=== PATIENT | male | born 1980 | race Caucasian/White ===

== ENCOUNTER 2022-06-18 22:20 | Emergency (ER) | payer MEDICAID, SELFPAY ==
--- NOTE | ~2022-06-18 | CT_ITS ---
EXAMINATION: CT ELBOW LT WO IV CON CLINICAL INFORMATION: Reason for Exam comminuted fx COMPARISON: X-ray dated 06/18/2022 TECHNIQUE: Multidetector CT imaging of the left elbow was performed without the use of intravenous contrast. Coronal and sagittal reformats created on an independent workstation were reviewed. This CT examination was performed using dose optimization techniques as appropriate, variously including the following: *Automated exposure control *Adjustment of mA and/or kV according to patient size (this includes techniques or standardized protocols for targeted exams where dose is matched to indication/reason for exam; i.e. extremities or head) *Use of iterative reconstruction technique DLP: 105 mGy-cm FINDINGS: Again seen is a markedly comminuted, essentially shattered proximal radius involving the radial head and neck with distant scattering of the fracture fragments anterior to the proximal radius as well as posterior to the distal humerus and within the olecranon fossa. Posterior dislocation of the ulna with respect to the humerus, associated with comminuted avulsion fractures of the coronoid, which are displaced proximally and anteriorly, 2.7 cm from the ulna. The humerus is intact. An elbow joint effusion is present. Diffuse soft tissue swelling. CT/CT elbow LT wo IV con IMPRESSION: * Posterior dislocation of the ulna with respect to the humerus, associated with comminuted avulsion fractures of the coronoid process. * Markedly comminuted and displaced fracture of the proximal radius as described.
--- NOTE | ~2022-06-18 | XR_ITS ---
EXAMINATION: XR ELBOW, LEFT CLINICAL INFORMATION: Fall COMPARISON: None available. TECHNIQUE: Two views of the left elbow. FINDINGS: Extensively comminuted fracture of the proximal radius with significant displacement of the shattered radial head fracture fragments both anterior and posterior to the distal humerus. There is associated posterior dislocation of the ulna with respect to the humerus. A large joint effusion is present. Diffuse soft tissue tissue swelling. XR/XR elbow LT 2V IMPRESSION: Extensively comminuted and displaced fracture of the proximal radius with associated posterior dislocation of the ulna with respect to the humerus.
[2022-06-18 23:35] VITALS: BMI 37.6
[2022-06-18 23:46] VITALS: BP 141/80; PULSE 97; RESP 14; TEMP 36.9; O2SAT 98
[2022-06-18 23:48] LABS: Basophils Percent Auto 0.6 % (0-2); Eosinophils Absolute Auto 0.2 X10*3/uL (0.0-0.4); Eosinophils Percent Auto 3.6 % (0-4); Hematocrit 43.9 % (42.0-52.0); Hemoglobin 14.5 g/dl (14.0-18.0); Imm Gran Abs Auto 0.01 X10*3/uL (0.00-0.03); Imm Gran Pct Auto 0.2 % (0.0-0.4); Lymphocytes Percent Auto 29.9 % (20-40); MANUAL DIFF FLAG NO; Mean Corpuscular Hemoglobin 31.5 pg (27.0-33.0); Mean Corpuscular Volume 95.2 fL (80.0-98.0); Mean Platelet Volume 11.7 fL (9.4-12.4); Monocytes Absolute Auto 0.6 X10*3/uL (0.1-1.2); Monocytes Percent Auto 8.3 % (2-11); Neutrophils Absolute Auto 3.8 x10*3/uL (2.0-8.3); Neutrophils Percent Auto 57.4 % (45-73); Platelet Count 219 X10*3/uL (160-400); Red Blood Count 4.61 X10*6/uL (4.60-5.80); Red Cell Distribution Width 12.8 % (11.0-16.0); White Blood Count 6.6 X10*3/uL (4.8-10.8)
[2022-06-19] LABS: Lactic Acid 1.2 mmol/L (0.5-2.0)
[2022-06-19 00:05] LABS: Alanine Aminotransferase 27 U/L (0-40); Albumin Level 4.3 g/dL (3.5-5.0); Alkaline Phosphatase 144 U/L (39-117); Anion Gap 13 (12-20); Aspartate Amino Transferase 23 U/L (5-37); Bilirubin Total 0.4 mg/dL (0.0-1.0); Blood Urea Nitrogen 13 mg/dL (9-16); Calcium 9.7 mg/dL (8.4-10.2); Carbon Dioxide 29 mmol/L (22-29); Chloride 107 mmol/L (96-108); Creatinine Clr Calc Pharmacy 107.9; Estimated Glomerular Filt Rate > 60; Glucose Random 111 mg/dL (60-115); Potassium 4.3 mmol/L (3.3-5.1); Sodium 145 mmol/L (135-145)
--- NOTE | 2022-06-19 00:05 | PC.NURSE ---
LAKHWINDER Reynolds placed 20g IV in RAC, labs drawn. Pt reports breaking arm in [place] and was not able to get it fixed and so he was flown here to get it fixed. Pt has ROM in his fingers and capillary refill of less than 2 seconds. Pt also has feeling in his fingers and reports 10/10 pain in his elbow Pt is alert and oriented x4, respirations even and unlabored, skin pink warm and dry, circulation intact
--- NOTE | 2022-06-19 00:13 | ED.EXTPRO ---
HPI - Extremity Problem General Chief complaint: Extremity Injury, Upper Stated complaint: broken arm Time Seen by Provider: 06/18/22 23:42 Source: patient Mode of arrival: ambulatory Limitations: no limitations History of Present Illness HPI Narrative: Patient apparently fell 2 weeks ago in [place] from 4 ft landed on his left elbow went to the ER diagnosed with elbow fracture posterior splint was placed patient came here today for further evaluation patient complaining of swelling of the left hand and elbow able to feel Related Data Previous Rx's Medication Instructions Recorded ibuprofen 600 mg tablet 600 mg PO Q6H PRN fever or pain 06/19/22 #30 tabs Allergies Allergy/AdvReac Type Severity Reaction Status Date / Time No Known Allergies Allergy Verified 06/18/22 23:43 Review of Systems Review of Systems: Yes all other systems are reviewed and are negative [facility] Social History Social History Smoked in Last 30 Days: Yes Use of substances other than those prescribed or required for medical reasons: No Advance Directives: No Advance Directives Information Provided: No Physical Exam Vital Signs: Vital Signs: Last Vital Signs Temp 98.2 F 06/19/22 01:23 Pulse 83 06/19/22 01:23 Resp 18 06/19/22 01:23 BP 132/89 06/19/22 01:23 Pulse Ox 98 06/19/22 01:23 O2 Del Method Room Air 06/19/22 01:23 BMI result Body Mass Index 37.6 Appearance: Alert. Oriented X3. No acute distress. Eyes: No pallor or icterus ENT: Pharynx normal. Oral Mucosa moist Neck: Normal inspection. Neck supple. CVS: Normal heart rate and rhythm. Pulses normal. Respiratory: No respiratory distress. Equal air entry bilateral, Abdomen: Soft and nontender. Bowel sounds are present, Skin: Skin warm and dry. Normal skin color. Normal skin turgor. Extremities: Left arm swelling at her left elbow forearm is soft neurovascular intact good range of movement of the hand and the wrist and fingers no signs of compartment syndrome Neuro: Oriented X 3. No motor deficit. No sensory deficit.No cerebellar signs , cranial nerves II-XII intact Medications Administered Discontinued Medications Generic Name Dose Route Start Last Admin Trade Name Freq PRN Reason Stop Dose Admin Oxycodone HCl 10 mg 06/19/22 00:54 06/19/22 01:03 Oxycodone Hcl Immed Release 5 Mg Tablet PO 06/19/22 00:55 10 mg ONCE ONE Administration Medical Decision Making Medical Decision Making [facility] Narrative: Patient was mechanical fall with posterior dislocation of the ulna with committed avulsion fracture of coronoid , proximal radius fracture. Case discussed ortho like to see the patient today or tomorrow for surgical evaluation sugar-tong splint was applied Lab Data [facility] Lab Attestation statement: I reviewed the patient's lab results. 06/18/22 23:42 06/18/22 23:42 Labs: Lab Results 06/18/22 06/18/22 06/18/22 Range/Units 23:42 23:42 23:42 WBC 6.6 (4.8-10.8) X10*3/uL RBC 4.61 (4.60-5.80) X10*6/uL Hgb 14.5 (14.0-18.0) g/dl Hct 43.9 (42.0-52.0) % MCV 95.2 (80.0-98.0) fL MCH 31.5 (27.0-33.0) pg MCHC 33.0 (31.0-36.0) g/dl RDW 12.8 (11.0-16.0) % Plt Count 219 (160-400) X10*3/uL MPV 11.7 (9.4-12.4) fL Immature Gran % (Auto) 0.2 (0.0-0.4) % Neut % (Auto) 57.4 (45-73) % Lymph % (Auto) 29.9 (20-40) % Bradley % (Auto) 8.3 (2-11) % Eos % (Auto) 3.6 (0-4) % Baso % (Auto) 0.6 (0-2) % Lymph # (Auto) 2.0 (1.2-4.9) X10*3/uL Bradley # (Auto) 0.6 (0.1-1.2) X10*3/uL Eos # (Auto) 0.2 (0.0-0.4) X10*3/uL Baso # (Auto) 0.0 (0.0-0.2) X10*3/uL Abs Immat Gran (auto) 0.01 (0.00-0.03) X10*3/uL Absolute Neuts (auto) 3.8 (2.0-8.3) x10*3/uL Absolute Nucleated RBC 0.000 (0.0-0.012) X10*3/uL Nucleated RBC % (auto) 0.0 (0.0-0.2) /100WBC Sodium 145 (135-145) mmol/L Potassium 4.3 (3.3-5.1) mmol/L Chloride 107 (96-108) mmol/L Carbon Dioxide 29 (22-29) mmol/L Anion Gap 13 (12-20) BUN 13 (9-16) mg/dL Creatinine 1.20 (0.5-1.4) mg/dL Estim Creat Clear Calc 107.9 Estimated GFR > 60 Random Glucose 111 (60-115) mg/dL Lactic Acid 1.2 (0.5-2.0) mmol/L Calcium 9.7 (8.4-10.2) mg/dL Total Bilirubin 0.4 (0.0-1.0) mg/dL AST 23 (5-37) U/L ALT 27 (0-40) U/L Alkaline Phosphatase 144 H (39-117) U/L Total Creatine Kinase 90 (38-174) U/L Total Protein 7.0 (6.5-8.0) g/dL Albumin 4.3 (3.5-5.0) g/dL Radiology Impression Discussion of test interpretation with radiology: I have reviewed the radiologist's reading. Radiologist Impression: RDER #: [id number] CT/CT elbow LT wo IV con IMPRESSION: *? Posterior dislocation of the ulna with respect to the humerus, associated with comminuted avulsion fractures of the coronoid process. *? Markedly comminuted and displaced fracture of the proximal radius as described. ? Procedures Orthopedic Splinting/Casting Injury #1: Side: left Upper Extremity Injury Location: elbow Upper Extremity Immobilizer: sling/shoulder immobilizer and sugar tong splint Discharge Plan Discharge Clinical Impression: Fracture of radial head, left, closed Patient Disposition: Home, Self-Care Instructions: Elbow Fracture (ED) Additional Instructions: Keep the left arm in the splint as provided Keep it elevated See orthopedics in 1-2 days someone will call you from the office Ibuprofen for pain Prescriptions: New ibuprofen 600 mg tablet 600 mg PO Q6H PRN (Reason: fever or pain) Qty: 30 0RF Referrals: Bob Garcia MD [Physician] - 2 days Interventions: ED Discharge Assessment Last Done: 06/19/22 01:47 Discharge Date/Time: 06/19/22 01:47
[2022-06-19] MEDS: oxyCODONE HCl Immed Release 5 MG TABLET 10 MG PO (01:03)
--- NOTE | 2022-06-19 01:14 | MHC.EDTECH ---
Addendum entered by aDniela Yin 06/19/22 01:37: Error splint applied to Left arm. Original Note: This Tech applied a sugar-tongue splint to patients right arm with lots of padding for comfort. Patient was able to tolerate procedure, at bedside and checked for placement. Sling applied for comfort and to keep arm elevated.
[2022-06-19 01:23] VITALS: BP 132/89; PULSE 83; RESP 18; TEMP 36.8; O2SAT 98
--- NOTE | 2022-06-19 01:44 | PC.NURSE ---
late entry- family member at bedside. primary marketing pr intern performed. pt awaiting ct
--- NOTE | 2022-06-19 01:45 | PC.NURSE ---
pt ambulatory at discharge. iv removed at this time. cms intact. pt able to move all 5 digits. pt continues to tolerate splint and sling well. pt provided with prescription, copies of imaging, and discharge packet. pt and family member verbalize understanding of discharge plan
== END 2022-06-19 01:47 | disposition home or self-care (01) ==
PROVIDERS: Emergency Provider Internal Medicine
DX: S52.122A Displaced fracture of head of left radius, initial encounter for closed fracture (principal); M25.522 Pain in left elbow; W01.0XXA Fall on same level from slipping, tripping and stumbling without subsequent striking against object, initial encounter; Y93.9 Activity, unspecified; Y92.9 Unspecified place or not applicable; Y99.9 Unspecified external cause status; Z79.899 Other long term (current) drug therapy
CPT/HCPCS: 29105; 36415; 73070; 73200; 80053; 82550; 83605; 85025; 99284

== ENCOUNTER → 2022-06-20 10:33 | Outpatient (BNVA) | payer MEDICAID, SELFPAY | PROVIDERS: Visit Provider Physician Assistant | DX: S52.122A Displaced fracture of head of left radius, initial encounter for closed fracture (principal); S53.105A Unspecified dislocation of left ulnohumeral joint, initial encounter; S52.042A Displaced fracture of coronoid process of left ulna, initial encounter for closed fracture | CPT/HCPCS: 99202 ==

== ENCOUNTER 2022-06-25 11:36 | Day surgery (SDC) | payer MEDICAID, SELFPAY ==
--- NOTE | 2022-06-24 09:08 | HO.ANESPROP2 ---
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 Meds Allergies Allergy/AdvReac Type Severity Reaction Status Date / Time No Known Allergies Allergy Verified 06/20/22 10:43 Exam Exam Date and Time: June 24, [id number] Pertinent Lab Results Pertinent Lab Results: Laboratory Tests 06/18/22 06/18/22 23:42 23:42 WBC 6.6 Hgb 14.5 Hct 43.9 Plt Count 219 Sodium 145 Potassium 4.3 Chloride 107 Carbon Dioxide 29 BUN 13 Creatinine 1.20 Assessment and Plan Assessment Anesthesia Assessment: Chart Reviewed Documented by User: Anthony Alford MD 06/25/22 10:28 [facility] Family History Family history of problems with anesthesia: No Surgical History History of Problems with Anesthesia: No Social History Social History (Updated 06/20/22 @ 10:44 by Michael Ch) Alcohol intake: never Patient Tobacco Use Status: Former Tobacco user Current occupational status: employed 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, 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 Meds Allergies Allergy/AdvReac Type Severity Reaction Status Date / Time No Known Allergies Allergy Verified 06/20/22 10:43 Exam Airway Mallampati Class: II TM Dist: >3cm Neck ROM: Full Heart: rrr Lungs: cta Assessment and Plan Assessment Anesthesia Assessment: Anesthesia Plan Discussed Final Anesthetic Review Family History of Problems with Anesthesia: No History of Problems with Anesthesia: No NPO: Yes ASA Class: II Final Preanesthetic Review: No Changes in Pt Med Stat, Meds/Allgs Chart Reviewed, Consent Obtained/Reviewed and Anes Risks/Benef Reviewed Patient Risk: Intermediate Procedure Risk: Intermediate Anesthetic Plan Anesthetic Plan: GA and Regional Block Disposition: Standard PACU
[2022-06-25] VITALS (7 sets, daily range): BP systolic 111–139; BP diastolic 73–78; PULSE 82–98; RESP 12–21; TEMP 36.3–36.6; O2SAT 92–98; BMI 36.2
--- NOTE | ~2022-06-25 | FL_ITS ---
EXAMINATION: XR FLUOROSCOPY WITH IMAGES CLINICAL INFORMATION: Left elbow ORIF. COMPARISON: None available. TECHNIQUE: Fluoroscopy Supervised By: Dr. Bob Garcia. Fluoroscopy Time: 0.3 minutes. Cumulative Dose: 1.47 mGy. DAP: 0.0255 Gycm2. Images: 2. FINDINGS: 2 images show the presence of a radial head prosthesis. FL/FL guidance in OR IMPRESSION: Fluoroscopy and spot films provided to Dr. Bob Garcia during ORIF of the left elbow. Please see his procedure note for full details.
[2022-06-25] MEDS: Lactated Ringers 1,000 ML 100 ML IVCONT (12:10)
--- NOTE | 2022-06-25 16:20 | PM.OP ---
Brief Operative Note Date of Service: 06/25/22 Pre-op diagnosis: Left elbow radial head fracture and dislocation Post-op diagnosis: other (1) left radial head fracture 2) left coronoid fracture 3) left LCL avulsion) Procedure: Radial head arthroplasty and LCL repair Implants: Romero 8.524 +0 radial head arthroplasty Surgeon: Bob Garcia MD Anesthesia: GETA and regional Was an High School Social Studies Teacher used for this Procedure?: Yes High School Social Studies Teacher: Paula Sidhu Estimated blood loss (mL): 200 Tourniquet time (min): 90 IV fluids (mL): 1,100 Pathology: other Condition: stable Disposition: PACU
--- NOTE | 2022-06-26 14:45 | P.OP_ITS ---
Operative Note Operative Note Date of Service: 06/25/22 Narrative: Date of Service: 06/25/22 Pre-op diagnosis: Left elbow radial head fracture and dislocation Post-op diagnosis: other (1) left radial head fracture 2) left coronoid fracture 3) left LCL avulsion) Procedure: Radial head arthroplasty and LCL repair Implants: Romero 8.5/24 +0 radial head arthroplasty Surgeon: Bob Garcia MD Anesthesia: GETA and regional Was an Precision Devices Inspector/Tester used for this Procedure?: Yes Precision Devices Inspector/Tester: Paula Sidhu Estimated blood loss (mL): 200 Tourniquet time (min): 90 IV fluids (mL): 1,100 Pathology: other Condition: stable Disposition: PACU Patient was brought to the operating room and placed supine on the surgical table. He was prepped and draped in standard sterile fashion and a time out was called to identify proper site, proper procedure and IV antibiotics per weight were administered. I began by exsanguinating the limb and insufflating the tourniquet to 250 mmHg. I began by making an extended Pablo incision over the lateral elbow. Dissection was taken down to the extensor wad. A fascial incision was made and the capsule was identified. A full-thickness capsular layer was extended over the radial head. The radial head was easily encountered as it was displaced and lateralized and it was removed with a Pablo. It was comminuted and not repairable. There was an avulsion of the lateral collateral ligamentous complex off the lateral humeral condyle. The elbow was subluxed and markedly unstable at this point. I irrigated copiously and explored the joint. There was a type 1 fracture of the coronoid and I removed various pieces small pieces of cartilage and fibrous debris. Once I was satisfied that elbow was completely void of loose particles I measured the radial head on the back table as a 26 and down sized to a 24. A I reamed to an 8.5 Reamer and then trialed wi th an 8.5/20 for radial head and neck. Biplanar fluoroscopy was used to assess the radial head alignment and size. I was satisfied with these parameters. I took the elbow through range of motion and I was satisfied with the stability using this construct. I therefore irrigated copiously and placed my final radial head implant in standard fashion. This was Press-Fit in the radial shaft. I then reduced the elbow investigator internal affairs to the LCL. I placed 2 1.8 mm all suture anchors through the lateral humeral condyle and re-approximated the LCL lateral ligamentous complex to these 2 suture anchors. I then used a FiberWire to over-sew the lateral ligamentous complex until I was satisfied that it it been repaired. I then took the elbow through full range of motion I was satisfied with stability. A layered closure was then performed with beverly on the skin. Patient was placed into a sterile dressing and a posterolateral splint. He was then extubated brought to the recovery room stable condition. There were no known complications.
== END 2022-06-25 17:49 | disposition home or self-care (01) ==
LOC: HO.SSS 11:37
PROVIDERS: Visit Provider Orthopaedic Surgery
PROC: (CPT 24366; principal; 2022-06-25 14:10)
DX: S52.122A Displaced fracture of head of left radius, initial encounter for closed fracture (principal); S53.102A Unspecified subluxation of left ulnohumeral joint, initial encounter; S52.042A Displaced fracture of coronoid process of left ulna, initial encounter for closed fracture; W17.89XA Other fall from one level to another, initial encounter; Y93.9 Activity, unspecified; Y92.89 Other specified places as the place of occurrence of the external cause; Y99.8 Other external cause status; F17.210 Nicotine dependence, cigarettes, uncomplicated
CPT/HCPCS: 24366; 24999; 88304; 88305; 88311; C1776; J0690; J2250; J2795

== ENCOUNTER 2022-07-03 08:56 | Outpatient (REF) | payer MEDICAID, SELFPAY ==
--- NOTE | ~2022-07-03 | XR_ITS ---
EXAMINATION: XR ELBOW, LEFT CLINICAL INFORMATION: M25.529 - Pain in unspecified elbow COMPARISON: CT dated 06/19/2022 TECHNIQUE: AP, lateral, and oblique views of the left elbow. FINDINGS: The radial head prosthesis appears appropriately situated. No periprosthetic fracture. Skin beverly are present at the lateral aspect of the elbow. Splint material is in place. There is a triangular 1.0 cm osseous fragment at the anterior aspect of the elbow just anterior to the distal humerus, likely corresponding to the displaced fracture from the tip of the coronoid process. Soft tissues are swollen. XR/XR elbow LT min 3V IMPRESSION: 1. Appropriate alignment of the radial head prosthesis. No periprosthetic fracture. 2. Displaced coronoid process fracture fragment in the anterior aspect of the joint.
== END 2022-07-03 08:57 | disposition home or self-care (01) ==
LOC: HO.HOSX 08:56
PROVIDERS: Visit Provider Physician Assistant
DX: S52.122D Displaced fracture of head of left radius, subsequent encounter for closed fracture with routine healing (principal); S53.105D Unspecified dislocation of left ulnohumeral joint, subsequent encounter; S52.042D Displaced fracture of coronoid process of left ulna, subsequent encounter for closed fracture with routine healing; X58.XXXD Exposure to other specified factors, subsequent encounter
CPT/HCPCS: 73080

== ENCOUNTER 2022-07-11 07:14 | Outpatient (REF) | payer OTHER, SELFPAY ==
--- NOTE | ~2022-07-11 | XR_ITS ---
EXAMINATION: XR ELBOW, LEFT CLINICAL INFORMATION: Pain, left elbow. COMPARISON: Left elbow 2022. TECHNIQUE: AP, lateral, and oblique views of the left elbow. FINDINGS: There is radial head prosthesis in satisfactory alignment. Surgical beverly are seen along the lateral elbow. Anterior elbow fracture fragment is unchanged. No abnormal joint effusion seen. XR/XR elbow LT min 3V IMPRESSION: Left radial prosthesis and a displaced bone fragment anterior elbow joint are stable. There are surgical beverly along the lateral elbow joint, which are also stable. No new findings seen.
== END 2022-07-11 07:15 | disposition home or self-care (01) ==
LOC: HO.HOSX 07:14
PROVIDERS: Visit Provider Physician Assistant
DX: S52.122A Displaced fracture of head of left radius, initial encounter for closed fracture (principal); S53.105A Unspecified dislocation of left ulnohumeral joint, initial encounter; S52.042A Displaced fracture of coronoid process of left ulna, initial encounter for closed fracture; X58.XXXA Exposure to other specified factors, initial encounter; Y93.9 Activity, unspecified; Y92.9 Unspecified place or not applicable; Y99.9 Unspecified external cause status
CPT/HCPCS: 73080; 99212

== ENCOUNTER 2022-07-25 08:11 | Outpatient (REF) | payer OTHER, SELFPAY ==
--- NOTE | ~2022-07-25 | XR_ITS ---
EXAMINATION: XR ELBOW, LEFT CLINICAL INFORMATION: Pain. COMPARISON: Radiographs dated 07/11/2022. TECHNIQUE: AP, lateral, and oblique views of the left elbow. FINDINGS: Bony alignment and mineralization are normal. There is an intact left radial head prosthesis, which is in good alignment, without failure or loosening. An anterior fracture fragment is redemonstrated. No dislocation or joint effusion is seen. No focal soft tissue gas or foreign body is noted. XR/XR elbow LT min 3V IMPRESSION: There is stable, good alignment of a left radial head prosthesis, without hardware failure or loosening noted.
== END 2022-07-25 08:12 | disposition home or self-care (01) ==
LOC: HO.HOSX 08:11
PROVIDERS: Visit Provider Physician Assistant
DX: S52.122D Displaced fracture of head of left radius, subsequent encounter for closed fracture with routine healing (principal); S53.105D Unspecified dislocation of left ulnohumeral joint, subsequent encounter; S52.042D Displaced fracture of coronoid process of left ulna, subsequent encounter for closed fracture with routine healing
CPT/HCPCS: 73080; 99212